=== PATIENT | female | born 1985 | race Caucasian/White ===

== ENCOUNTER 2019-02-23 05:35 | Day surgery (SDC) | payer OTHER ==
[~2019-02-23] VITALS: Ht 157.5 cm; Wt 67.6 kg
--- NOTE | ~2019-02-23 | OR ---
[facility] [address], [place] [address] [place] DATE OF OPERATION: 02/23/2019 SURGEON: Clinton Bellamy DO PREOPERATIVE DIAGNOSES: 1. . 2. Dysuria. 3. Suspected adenomyosis. POSTOPERATIVE DIAGNOSES: 1. . 2. Dysuria. 3. Suspected adenomyosis. PROCEDURES PERFORMED: 1. Laparoscopic hysterectomy. 2. Bilateral salpingectomy. 3. Hysteroscopy. CIGARETTE MAKER: Samuel Spence MD ESTIMATED BLOOD LOSS: 20 mL. SPECIMEN: Uterus, tubes, and ovaries. FINDINGS: Normal external genitalia. Normal uterus, tubes, and ovaries. Minimal scarring at the sigmoid and the left adnexa. Hemostasis obtained at the end of the procedure. The bladder bilateral ureteral jets noted. COMPLICATIONS: None. INDICATIONS: Ms. Her is a 33-year-old white female with a 10-year history of dysmenorrhea and abnormal uterine bleeding. She has had medical treatment. An ultrasound demonstrated features consistent with adenomyosis. total laparoscopic PATIENT NAME: FER HER OPERATIVE REPORT DATE OF : [birth year] REPORT #: [id number] PHYSICIAN: CLINTON BELLAMY DO PCP: STAR GOMEZ REPORT IS CONFIDENTIAL AND NOT TO BE RELEASED WITHOUT AUTHORIZATION [facility] [address] [facility] [place], [place] [address] [place] hysterectomy, bilateral salpingectomy, and cystoscopy. Risks, benefits, and alternatives were discussed in detail with the patient. The patient understands the risks procedure. TECHNIQUE: The patient was seen in the operating room. A time-out was performed confirming correct patient and correct procedure. General anesthesia was adequately established. The patient was prepped and draped in dorsal lithotomy . Preoperative antibiotics given, 2 g of Ancef and no heparin was indicated. A weighted speculum was placed in vagina and the anterior lip of the cervix was grasped with an Allis clamp. The cervix was . This was then amputated at the cornua and delivered through this 8 mm assist port. The left utero-ovarian ligament was fulgurated and divided with good hemostasis fulgurated and divided. broad ligament were dissected into the vaginal cuff. The uterosacral ligament was then divided and dissection was carried down to the uterosacral ligament on the right. The anterior leaf of the broad ligament was then divided just above the bladder reflection at the level of the vaginal cuff and the bladder was pushed down well below the vasculature was isolated, fulgurated, and divided with good hemostasis. mesosalpinx and fulguration and division of right utero-ovarian ligament completion of the dissection . The right uterine vessels were fulgurated and divided with good hemostasis. Attention was then turned to the colpotomy. device was placed and colpotomy was performed starting posterior 6 o'clock and carried around circumferentially without difficulty. The uterus and cervix were delivered through the vagina and sent to pathology for further evaluation. Pneumoperitoneum was reestablished by placing a glove . Some oozing was noted along the left peritoneal edge and this was carefully fulgurated using monopolar energy after ensuring that the ureter was well away from the site. After hemostasis was appreciated, the colpotomy was closed using V-Loc suture with an Endo Stitch device with careful attention to incorporate the uterosacral ligament as well as to incorporate the vaginal each bite. Good apical support was noted. Hemostasis was appreciated. The pelvis was irrigated and the hemostatic. Evicel was placed across the area of dissection to ensure hemostasis. Pressures were lowered and pneumoperitoneum was lowered and good hemostasis was again appreciated. The trocars were removed and trocar sites repaired using 4-0 Vicryl subcuticular stitch. Attention was turned to cystoscopy. The Roblero catheter was removed and a cystoscope was placed into the urethral meatus and advanced under direct visualization of the bladder. . Bilateral ureteral jets were noted. Cystoscope was withdrawn. The bladder drained and a Roblero catheter inserted. The patient was taken to PACU in good stable condition. Sponge, needle, and instrument counts were correct at the end of the procedure. Dr. Spence was present and participated in all portions of procedure. PATIENT NAME: FER HER OPERATIVE REPORT DATE OF : 81 REPORT #: [id number] PHYSICIAN: CLINTON BELLAMY DO PCP: STAR GOMEZ REPORT IS CONFIDENTIAL AND NOT TO BE RELEASED WITHOUT AUTHORIZATION [address] [place] [address] Draft DO JEFF Hess/GALA /[id number] Copies: ~ PATIENT NAME: FER HER OPERATIVE REPORT DATE OF : 81 REPORT #: [id number] PHYSICIAN: CLINTON BELLAMY DO PCP: STAR GMOEZ REPORT IS CONFIDENTIAL AND NOT TO BE RELEASED WITHOUT AUTHORIZATION
[~2019-02-23 05:35] MED LIST: VYVANSE30 MG PO
[2019-02-23] MEDS ORDERED: ALEVE220 MG PO (05:45)
--- NOTE | 2019-02-23 13:23 | NUR ---
02/23/19 1323 Mary Kay Garner 1308 PATIENT ARRIVES TO PACU SLEEPING, OPENS EYES TO VERBAL STIMULI, THEN BACK TO SLEEP. RESP EVEN AND UNLABORED, MASK AT 8 LITERS.
--- NOTE | 2019-02-23 13:30 | NUR ---
PT ALERT, ORIENTED AND SUPPORTED BY FAMILY. SHE STATED SHE IS READY TO FEEL BETTER-HAS BATTLED WITH THIS FOR 3 YRS. PT REQUESTED PRAYER, WILL FOLLOW NEEDED
--- NOTE | 2019-02-23 13:49 | NUR ---
ICED WATER AND SOUP GIVEN. CALL LIGHT W/IN REACH. FAMILY @ BEDSIDE.
[2019-02-23] MEDS ORDERED: MOTRIN IB200 MG PO (14:14)
[2019-02-23] MEDS ORDERED: NORCO 5-325 TA1 EACH PO (14:15)
--- NOTE | 2019-02-23 14:46 | NUR ---
PATIENT STANDS AT THE BEDSIDE AND MOVES WELL. PATIENT DENIES DIZZINESS. 10 ML MENA BALLOON IS DEFLATED AND MENA CATHETER IS REMOVED. PATIENT TOLERATES THIS WELL. 100 ML YELLOW URINE NOTED TO OVERNIGHT MENA BAG. PATIENT IS BACK IN BED. SCDS IN PLACE. MORE ICED WATER GIVEN. PATIENT DENIES ADD'L NEEDS @ THIS TIME.
--- NOTE | 2019-02-23 15:50 | NUR ---
MORE ICED WATER GIVEN. FAMILY @ BEDSIDE. JUICE GIVEN. CALL LIGHT W/IN REACH.
--- NOTE | 2019-02-23 16:15 | NUR ---
PT AMBULATES IN EMMANUEL TO BATHROOM AND TOLERATES. PT STATES SHE IS UNABLE TO VOID. PT STANDS IN BATHROOM AND VOMITS 500+ ML BILE TINGED EMESIS. PT AMBULATES BACK TO BED. BLADDER SCAN REVEALS 42 ML IN BLADDER AT THIS TIME. UPDATE GIVEN TO PT'S PRIMARY NURSE ANALY
--- NOTE | 2019-02-23 16:30 | NUR ---
CALL TO DOCTOR MARTE REGARDING PATIENT'S EMESIS AND LACK OF VOID. DOCTOR MARTE ORDERS A 1 LITER LR BOLUS. PLAN OF CARE RELAYED TO PATIENT AND PATIENT REPORTS FRUSTRATION WITH HAVING BEEN HERE "SINCE 5 THIS MORNING". PATIENT DENIES NAUSEA AT THIS TIME. CALL LIGHT W/IN REACH.
--- NOTE | 2019-02-23 17:28 | NUR ---
LE 1700: PATIENT UP TO THE BATHROOM WITH RN STANDBY. PATIENT VOIDS 200 ML CLEAR YELLOW URINE AND REQUESTS DC HOME. DISCHARGE INSTRUCTIONS ARE GIVEN IN PRESENCE OF PATIENT'S MOTHER AND AUNT. ALL VERBALIZE UNDERSTANDING. PATIENT IS GETTING DRESSED. PATIENT TRANSFERS HERSELF TO AND TOLERATES THAT WELL.
== END 2019-02-23 17:15 | disposition home or self-care (01) ==
LOC: DS 05:35
PROVIDERS: Obstetrics & Gynecology
PROC: 0UT94ZZ Resection of Uterus, Percutaneous Endoscopic Approach (ICD-10-PCS; principal; 2019-02-23 06:45)
PROC: 0UT74ZZ Resection of Bilateral Fallopian Tubes, Percutaneous Endoscopic Approach (ICD-10-PCS; 2019-02-23 06:45)
DX: N80.0 Endometriosis of uterus (principal); N94.6 Dysmenorrhea, unspecified; Z88.5 Allergy status to narcotic agent; Z88.0 Allergy status to penicillin
CPT/HCPCS: 00944; J0131; J0690; J1100; J1170; J1885; J2250; J2370; J2405; J2704; J3010; J7120